=== PATIENT | male | born 1950 | race Caucasian/White ===

== ENCOUNTER 2019-08-27 08:59 | Inpatient (IN) ==
[2019-08-27] MEDS ORDERED: GLUCAGON 1 MG VIAL IM PRN ×2 (09:21)
[2019-08-27] MEDS ORDERED: DEXTROSE 50% 25 GM/50 ML VIAL IV PRN ×2 (09:21)
[2019-08-27 10:32] LABS: Basophils # 0.1 10*3/uL (0.0-0.2); Basophils % 0.8 % (0.0-0.8); Eosinophils # 0.1 10*3/uL (0.0-0.87); Eosinophils % 1.4 % (0.00-10.9); Hematocrit 50.4 VOL% (42.0-52.0); Hemoglobin 16.4 GM/DL (14.0-18.0); Immature Granulocytes % 0.3 %; Immature Granulocytes Absolute 0.03 #; Mean Corpuscular HGB Conc 32.5 GM/DL (32-36); Mean Corpuscular Volume 85.7 FL (87-102); Mean Platelet Volume 11.9 FL (9.6-12.0); Monocytes % 7.8 % (1.7-12.7); Neutrophils % 68.7 % (38.7-73.9); Platelet Count 221 T/CUMM (130-400); Red Blood Count 5.88 MC/CUMM (3.8-5.5); Red Cell Distribution Width 13.8 % (9.3-17.3); White Blood Count 9.6 T/CUMM (4-12)
[2019-08-27 10:54] LABS: Albumin 3.9 G/DL (3.4-5.0); Bilirubin,Total 0.5 MG/DL (0.2-1.0); Calcium 9.2 MG/DL (8.5-10.1); Osmolality,Calculated 273.8 MOS/KG (273-304); Total Protein 7.5 G/DL (6.4-8.3)
[2019-08-27 11:36] LABS: ABG Base Excess 3.1 MMOL/L (-2.5-2.5); ABG HCO3 27.1 MMOL/L (20-26); ABG Oxygen Saturation 96.9 % (95-100); ABG PCO2 40.2 MM HG (35-48); ABG PH 7.441 (7.35-7.45); ABG PO2 81.5 MM HG (80-95)
[2019-08-27] MEDS ORDERED: NITROGLYCERIN SL 0.4 MG TABLET SL PRN (12:11)
[2019-08-27] MEDS ORDERED: ACETAMINOPHEN 325 MG TABLET PO PRN (12:12)
[2019-08-27] MEDS: INSULIN LISPRO 100 UNIT/ML SUBCUT SCH ×3 (12:15→21:33)
[2019-08-27] MEDS: CHLORHEXIDINE 4% SOLN 118 ML BOTTLE TOP SCH ×2 (14:41→21:34)
[2019-08-27] MEDS: CHLORHEXIDINE 0.12% ORAL RINSE 60 ML BOTTLE SWISH/SPIT SCH (22:11)
[2019-08-27] MEDS: SODIUM CHLORIDE 0.9% 1,000 ML IV SCH (22:15)
[2019-08-28] MEDS ORDERED: PAPAVERINE 60 MG/2 ML VIAL ONE (05:15)
[2019-08-28] MEDS ORDERED: VANCOMYCIN 1,000 MG VIAL ONE (05:16)
[2019-08-28] MEDS ORDERED: VANCOMYCIN 500 MG VIAL ONE (05:16)
[2019-08-28] MEDS ORDERED: DIAZEPAM 5 MG TABLET PO ONE (06:00)
[2019-08-28] MEDS ORDERED: FAMOTIDINE 20 MG TABLET PO ONE (06:00)
[2019-08-28] MEDS ORDERED: SUFentanil 250 MCG/5 ML AMP ONE (06:07)
[2019-08-28] MEDS ORDERED: MIDAZOLAM 10 MG/2 ML VIAL ONE (06:07)
[2019-08-28] MEDS ORDERED: MINERAL OIL/PETROLATUM OPH OINT 3.5 GM TUBE ONE (06:08)
[2019-08-28] MEDS ORDERED: FAMOTIDINE 20 MG/2 ML VIAL IV ONE (06:24)
[2019-08-28] MEDS ORDERED: diphenhydrAMINE 50 MG/1 ML VIAL ONE (06:24)
[2019-08-28] MEDS ORDERED: VANCOMYCIN INJ 1,000 MG in SODIUM CHLORIDE 0.9% 250 ML IV ONE (07:00)
[2019-08-28] MEDS ORDERED: SODIUM BICARBONATE 50 MEQ/50 ML VIAL IV ONE ×2 (07:42→11:24)
[2019-08-28] MEDS ORDERED: PHENYLEPHRINE DRIP 40 MG/250 ML PREMIX IV ONE (07:42)
[2019-08-28] MEDS ORDERED: CALCIUM CHLORIDE 1,000 MG/10 ML SYRINGE IV ONE (07:42)
[2019-08-28] MEDS ORDERED: NITROPRUSSIDE 50 MG/2 ML VIAL ONE (07:42)
[2019-08-28] MEDS ORDERED: POTASSIUM CHLORIDE RIDER 100 ML IV ONE (07:43)
[2019-08-28 07:44] LABS: ABG Base Excess -0.2 MMOL/L (-2.5-2.5); ABG HCO3 24.3 MMOL/L (20-26); ABG Oxygen Saturation 99.9 % (95-100); ABG PCO2 40.7 MM HG (35-48); ABG PH 7.391 (7.35-7.45); ABG TCO2 21.2 MMOL/L (23-27); Glucose Heart Surgery 122 MG/DL (74-106); Hematocrit Heart Surgery 43.5 PERCENT (42-52); Hemoglobin Heart Surgery 14.2 G/DL (14.0-18.0); Ionized Calcium Arterial 1.14 MMOL/L (1.21-1.46); PCO2 Patient Temp Arterial 40.7 MMHG; PH Patient Temp Arterial 7.391; Patient Temperature 37 CELCIUS; Potassium Heart/CVR 3.8 MMOL/L (3.5-5.1); Sodium Heart/CVR 141 MMOL/L (135-145)
[2019-08-28] MEDS ORDERED: ALBUMIN 5% 12.5 GM/250 ML VIAL IV ONE ×2 (08:32→12:41)
[2019-08-28 09:59] LABS: Apearance,Urine CLEAR (Clear); Bilirubin,Urine Negative (Negative); Blood, Urine Small mg/dL (Negative); Glucose,Urine (UA) Negative (Negative); Ketones,Urine Negative (Negative); Mucus,Urine Occasional /LPF (Occasional); Nitrite,Urine Negative (Negative); Protein,Urine Negative; RBC,Urine 3 /HPF (0-4); Urine Color Yellow (Yellow); Urine Specific Gravity 1.016 (1.001-1.035); Urine Urobilinogen < 2.0 EU/DL (0.2-1.0); WBC,Urine 1 /HPF (0-6)
[2019-08-28 10:15] LABS: Hematocrit Heart Surgery 29.5 PERCENT (42-52); Hemoglobin Heart Surgery 9.5 G/DL (14.0-18.0); PCO2 Patient Temp Venous 33.6 MM HG; PH Patient Temp Venous 7.461; PO2 Patient Temp Venous 39.4 MM HG; Potassium Heart/CVR 4.7 MMOL/L (3.5-5.1); VBG Base Excess 0.6 MEQ/L (0-4); VBG HCO3 24.8 MEQ/L (24-28); VBG PCO2 38.9 MMHG (41-51); VBG PH 7.417; VBG PO2 48.4 MMHG (17-40)
[2019-08-28 10:54] LABS: Hematocrit Heart Surgery 34.2 PERCENT (42-52); Hemoglobin Heart Surgery 11.1 G/DL (14.0-18.0); PCO2 Patient Temp Venous 31.7 MM HG; PH Patient Temp Venous 7.485; PO2 Patient Temp Venous 35.2 MM HG; Potassium Heart/CVR 4.8 MMOL/L (3.5-5.1); VBG Oxygen Saturation 80.2 %; VBG PCO2 34.9 MMHG (41-51); VBG PH 7.455; VBG PO2 40.5 MMHG (17-40)
[2019-08-28] MEDS ORDERED: THROMBIN TOPICAL (RECOMBINANT) 5,000 UNIT VIAL TOP ONE ×2 (11:12→11:15)
[2019-08-28] MEDS ORDERED: DEXTROSE 5% KCL 20 MEQ 20 MEQ/1,000 ML BAG IV ONE (11:23)
[2019-08-28] MEDS ORDERED: MANNITOL 100 GM/500 ML BAG IV ONE (11:23)
[2019-08-28] MEDS ORDERED: LIDOCAINE 2% 5 ML VIAL ONE ×2 (11:23→17:17)
[2019-08-28] MEDS ORDERED: FUROSEMIDE 20 MG/2 ML VIAL ONE (11:24)
[2019-08-28] MEDS ORDERED: ALBUMIN 25% 25 GM/100 ML VIAL IV ONE ×3 (11:24→17:17)
[2019-08-28] MEDS ORDERED: PROTAMINE SULFATE 250 MG/25 ML VIAL IV ONE (11:24)
[2019-08-28] MEDS ORDERED: HEPARIN 10,000 UNIT/10 ML VIAL ONE ×2 (11:24→17:17)
[2019-08-28] MEDS ORDERED: methylPREDNISolone SOD SUC 1,000 MG/8 ML VIAL ONE (11:24)
[2019-08-28] MEDS ORDERED: PROTAMINE SULFATE 50 MG/5 ML VIAL IV ONE ×4 (11:24→15:28)
[2019-08-28] MEDS ORDERED: MAGNESIUM SULFATE 5 GM/10 ML VIAL IV ONE (11:24)
[2019-08-28 11:38] LABS: ABG Base Excess 0.4 MMOL/L (-2.5-2.5); ABG HCO3 24.8 MMOL/L (20-26); ABG PCO2 36.6 MM HG (35-48); ABG PH 7.431 (7.35-7.45); ABG TCO2 21.2 MMOL/L (23-27); Glucose Heart Surgery 245 MG/DL (74-106); Hematocrit Heart Surgery 39.7 PERCENT (42-52); Hemoglobin Heart Surgery 12.9 G/DL (14.0-18.0); Ionized Calcium Arterial 1.31 MMOL/L (1.21-1.46); PCO2 Patient Temp Arterial 36.6 MMHG; PH Patient Temp Arterial 7.431; Patient Temperature 37 CELCIUS; Potassium Heart/CVR 3.8 MMOL/L (3.5-5.1); Sodium Heart/CVR 137 MMOL/L (135-145)
[2019-08-28] MEDS: SODIUM CHLORIDE 0.45% 1,000 ML IV SCH ×2 (12:48)
[2019-08-28] MEDS: ALBUMIN 5% 12.5 GM in PREMIX 1 EACH IV PRN ×2 (13:00→14:00)
[2019-08-28] MEDS: LACTATED RINGERS 1,000 ML IV PRN ×2 (13:00→14:01)
[2019-08-28] MEDS: POTASSIUM CHLORIDE RIDER 20 MEQ in PREMIX 1 EACH IV PRN ×4 (13:00→21:59)
[2019-08-28] MEDS ORDERED: CHLORHEXIDINE 4% SOLN 118 ML BOTTLE TOP PRN (13:12)
[2019-08-28] MEDS ORDERED: DEXTROSE 10% 250 ML BAG IV PRN ×2 (13:12)
[2019-08-28] MEDS ORDERED: MORPHINE 10 MG/1 ML VIAL IV PRN (13:12)
[2019-08-28] MEDS ORDERED: MAGNESIUM SULF RIDER 2 GM in PREMIX 1 EACH IV PRN (13:12)
[2019-08-28] MEDS ORDERED: ONDANSETRON 4 MG/2 ML VIAL IV PRN (13:12)
[2019-08-28] MEDS ORDERED: MIDAZOLAM 10 MG/2 ML VIAL IV PRN (13:12)
[2019-08-28] MEDS ORDERED: MIDAZOLAM 2 MG/2 ML VIAL IV PRN (13:12)
[2019-08-28] MEDS ORDERED: CALCIUM CHLORIDE 1,000 MG/10 ML SYRINGE IV PRN (13:12)
[2019-08-28] MEDS ORDERED: INSULIN REGULAR 100 UNIT/ML IV ONE (13:12)
[2019-08-28] MEDS ORDERED: ACETAMINOPHEN 650 MG SUPP RECTAL PRN (13:12)
[2019-08-28] MEDS ORDERED: LACTATED RINGERS 250 ML IV PRN (13:12)
[2019-08-28] MEDS ORDERED: VECURONIUM 10 MG VIAL IV PRN ×2 (13:12)
[2019-08-28] MEDS ORDERED: INSULIN REGULAR 100 UNIT/ML IV PRN (13:12)
[2019-08-28] MEDS ORDERED: NITROPRUSSIDE 100 MG in DEXTROSE 5% 250 ML IV PRN (13:12)
[2019-08-28] MEDS ORDERED: MAGNESIUM SULF RIDER 4 GM in PREMIX 1 EACH IV PRN (13:12)
[2019-08-28 13:15] LABS: ABG Base Excess -1.6 MMOL/L (-2.5-2.5); ABG HCO3 23.1 MMOL/L (20-26); ABG Oxygen Saturation 99.9 % (95-100); ABG PCO2 33.4 MM HG (35-48); ABG PH 7.429 (7.35-7.45); Glucose Heart Surgery 223 MG/DL (74-106); Hematocrit Heart Surgery 31.9 PERCENT (42-52); Hemoglobin Heart Surgery 10.3 G/DL (14.0-18.0); Potassium Heart/CVR 3.4 MMOL/L (3.5-5.1)
[2019-08-28 13:22] LABS: Basophils # 0.1 10*3/uL (0.0-0.2); Basophils % 0.4 % (0.0-0.8); Eosinophils # 0.1 10*3/uL (0.0-0.87); Eosinophils % 0.6 % (0.00-10.9); Hematocrit 31.2 VOL% (42.0-52.0); Hemoglobin 10.1 GM/DL (14.0-18.0); Immature Granulocytes % 0.7 %; Immature Granulocytes Absolute 0.12 #; Lymphocytes % 5.8 % (21.2-54.2); Mean Corpuscular HGB Conc 32.4 GM/DL (32-36); Mean Corpuscular Volume 87.6 FL (87-102); Mean Platelet Volume 11.4 FL (9.6-12.0); Monocytes % 3.7 % (1.7-12.7); Neutrophils % 88.8 % (38.7-73.9); Platelet Count 177 T/CUMM (130-400); Red Blood Count 3.56 MC/CUMM (3.8-5.5); Red Cell Distribution Width 13.8 % (9.3-17.3); White Blood Count 17.1 T/CUMM (4-12)
[2019-08-28 13:30] LABS: INR 1.2; PT Patient Result 12.6 SECS (9.8-11.9); Partial Thromboplastin Time 31.3 SECS (23.9-33.8)
[2019-08-28] MEDS: POTASSIUM CHLORIDE RIDER 10 MEQ in PREMIX 1 EACH IV PRN ×2 (13:30→22:35)
[2019-08-28 13:31] LABS: Albumin 3.9 G/DL (3.4-5.0); Bilirubin,Total 1.4 MG/DL (0.2-1.0); Calcium 8.7 MG/DL (8.5-10.1); Total Protein 5.6 G/DL (6.4-8.3)
[2019-08-28 13:36] LABS: CKMB % 6.8 %
[2019-08-28 13:38] LABS: Troponin I 4.37 NG/ML (0.00-0.045)
[2019-08-28] MEDS: INSULIN REGULAR DRIP 100 ML IV SCH (14:46)
[2019-08-28 15:06] LABS: ABG Base Excess -0.3 MMOL/L (-2.5-2.5); ABG HCO3 24.2 MMOL/L (20-26); ABG Oxygen Saturation 99.7 % (95-100); ABG PCO2 30.8 MM HG (35-48); ABG PH 7.476 (7.35-7.45); Glucose Heart Surgery 182 MG/DL (74-106); Hematocrit Heart Surgery 26.9 PERCENT (42-52); Hemoglobin Heart Surgery 8.7 G/DL (14.0-18.0); Potassium Heart/CVR 3.5 MMOL/L (3.5-5.1)
[2019-08-28] MEDS ORDERED: SODIUM CHLORIDE 0.9% 1,000 ML IV PRN ×2 (15:26→15:34)
[2019-08-28] MEDS ORDERED: AMIODARONE 150 MG/3 ML VIAL ONE (17:17)
[2019-08-28] MEDS ORDERED: HEPARIN/NACL 0.9% 2 UNITS/ML 500 ML IV ONE (17:17)
[2019-08-28] MEDS ORDERED: PHENYLEPHRINE DRIP 20 MG/250 ML PREMIX IV ONE (17:17)
[2019-08-28] MEDS ORDERED: SEVOFLURANE 1 UNIT/15 MINUTE INH ONE (17:17)
[2019-08-28] MEDS ORDERED: VECURONIUM 10 MG VIAL IV ONE (17:17)
[2019-08-28] MEDS ORDERED: CALCIUM CHLORIDE 1,000 MG/10 ML VIAL IV ONE (17:17)
[2019-08-28] MEDS ORDERED: ETOMIDATE 40 MG/20 ML VIAL IV ONE (17:18)
[2019-08-28] MEDS ORDERED: AMINOCAPROIC ACID 5,000 MG/20 ML VIAL ONE (17:18)
[2019-08-28] MEDS ORDERED: SODIUM CHLORIDE 0.9% 100 ML IV ONE (17:18)
[2019-08-28] MEDS ORDERED: SODIUM CHLORIDE 0.9% 250 ML IV ONE (17:18)
[2019-08-28] MEDS ORDERED: PHENYLEPHRINE 10 MG/1 ML VIAL IV ONE (17:18)
[2019-08-28] MEDS ORDERED: LACTATED RINGERS 2,000 ML IV ONE (17:18)
[2019-08-28] MEDS ORDERED: SODIUM CHLORIDE 0.9% 2,000 ML IV ONE (17:18)
[2019-08-28] MEDS ORDERED: ePHEDrine 50 MG/ML AMP ONE (17:23)
[2019-08-28 18:07] LABS: ABG HCO3 25.3 MMOL/L (20-26); ABG Oxygen Saturation 99.6 % (95-100); ABG PH 7.446 (7.35-7.45); ABG TCO2 22.7 MMOL/L (23-27); Glucose Heart Surgery 154 MG/DL (74-106); Hematocrit Heart Surgery 29.3 PERCENT (42-52); Hemoglobin Heart Surgery 9.5 G/DL (14.0-18.0); Potassium Heart/CVR 3.3 MMOL/L (3.5-5.1)
[2019-08-28] MEDS: PHENYLEPHRINE DRIP 40 MG/250 ML PREMIX IV PRN (19:00)
[2019-08-28] MEDS: CHLORHEXIDINE 4% SOLN 118 ML BOTTLE TOP SCH (19:26)
[2019-08-28] MEDS: CHLORHEXIDINE 0.12% ORAL RINSE 60 ML BOTTLE SWISH/SPIT SCH ×2 (19:26→22:02)
[2019-08-28] MEDS: SODIUM CHLORIDE 0.9% 1,000 ML IV SCH (19:26)
[2019-08-28] MEDS: INSULIN LISPRO 100 UNIT/ML SUBCUT SCH ×2 (19:26→20:05)
[2019-08-28] MEDS: MORPHINE 4 MG/1 ML VIAL IV PRN (21:15)
[2019-08-28 21:54] LABS: ABG Base Excess 0.4 MMOL/L (-2.5-2.5); ABG HCO3 24.8 MMOL/L (20-26); ABG Oxygen Saturation 99.7 % (95-100); ABG PCO2 35.3 MM HG (35-48); ABG PH 7.443 (7.35-7.45); ABG TCO2 21.7 MMOL/L (23-27); Glucose Heart Surgery 163 MG/DL (74-106); Hematocrit Heart Surgery 33.1 PERCENT (42-52); Hemoglobin Heart Surgery 10.7 G/DL (14.0-18.0); Potassium Heart/CVR 3.8 MMOL/L (3.5-5.1)
[2019-08-29] MEDS: MORPHINE 4 MG/1 ML VIAL IV PRN ×2 (00:07→20:55)
[2019-08-29] MEDS: VANCOMYCIN INJ 1,250 MG in SODIUM CHLORIDE 0.9% 250 ML IV SCH ×2 (00:11→12:15)
[2019-08-29] MEDS: ALBUMIN 5% 12.5 GM in PREMIX 1 EACH IV PRN ×2 (00:54→02:22)
[2019-08-29] MEDS ORDERED: AMIODARONE 150 MG/3 ML VIAL ONE (01:48)
[2019-08-29] MEDS ORDERED: AMIODARONE INJ 150 MG in DEXTROSE 5% 100 ML IV ONE (02:00)
[2019-08-29] MEDS ORDERED: AMIODARONE INJ 450 MG in DEXTROSE 5% 241 ML IV SCH (02:00)
[2019-08-29] MEDS: PHENYLEPHRINE DRIP 40 MG/250 ML PREMIX IV PRN ×2 (02:02→08:45)
[2019-08-29 02:14] LABS: ABG Base Excess 0.3 MMOL/L (-2.5-2.5); ABG HCO3 24.7 MMOL/L (20-26); ABG Oxygen Saturation 99.2 % (95-100); ABG PCO2 43.5 MM HG (35-48); ABG PH 7.378 (7.35-7.45); ABG TCO2 23.3 MMOL/L (23-27); Glucose Heart Surgery 178 MG/DL (74-106); Hematocrit Heart Surgery 31.4 PERCENT (42-52); Hemoglobin Heart Surgery 10.1 G/DL (14.0-18.0); Potassium Heart/CVR 3.8 MMOL/L (3.5-5.1)
[2019-08-29] MEDS: POTASSIUM CHLORIDE RIDER 20 MEQ in PREMIX 1 EACH IV PRN (02:37)
[2019-08-29] MEDS: POTASSIUM CHLORIDE RIDER 10 MEQ in PREMIX 1 EACH IV PRN (03:07)
[2019-08-29 04:01] LABS: ABG HCO3 23.5 MMOL/L (20-26); ABG Oxygen Saturation 98.4 % (95-100); ABG PCO2 43.4 MM HG (35-48); ABG PH 7.359 (7.35-7.45); ABG TCO2 22.4 MMOL/L (23-27); Glucose Heart Surgery 169 MG/DL (74-106); Hematocrit Heart Surgery 30.7 PERCENT (42-52); Hemoglobin Heart Surgery 9.9 G/DL (14.0-18.0); Potassium Heart/CVR 4.4 MMOL/L (3.5-5.1)
[2019-08-29 04:31] LABS: Basophils % 0.1 % (0.0-0.8); Hematocrit 28.4 VOL% (42.0-52.0); Hemoglobin 9.6 GM/DL (14.0-18.0); Immature Granulocytes % 0.4 %; Immature Granulocytes Absolute 0.07 #; Lymphocytes # 0.8 10*3/uL (1.4-4.0); Lymphocytes % 4.8 % (21.2-54.2); Mean Corpuscular HGB Conc 33.8 GM/DL (32-36); Mean Corpuscular Volume 85.5 FL (87-102); Mean Platelet Volume 12.1 FL (9.6-12.0); Monocytes % 6.3 % (1.7-12.7); Neutrophils % 88.4 % (38.7-73.9); Platelet Count 149 T/CUMM (130-400); Red Blood Count 3.32 MC/CUMM (3.8-5.5); Red Cell Distribution Width 14.3 % (9.3-17.3); White Blood Count 15.7 T/CUMM (4-12)
[2019-08-29 04:52] LABS: CKMB % 5.2 %
[2019-08-29 04:59] LABS: Band Neutrophils 14 % (0-10); Lymphocytes 4 % (20-55); Segmented Neutrophils 77 % (50-85); Total Cells Counted 100
[2019-08-29 05:00] LABS: Anisocytosis 1+; Platelet Estimate Normal
[2019-08-29 05:08] LABS: Albumin 3.9 G/DL (3.4-5.0); Bilirubin,Direct 0.41 MG/DL (0.0-0.20); Calcium 8.3 MG/DL (8.5-10.1); Osmolality,Calculated 280.4 MOS/KG (273-304); Total Protein 6.1 G/DL (6.4-8.3)
[2019-08-29] MEDS: CHLORHEXIDINE 0.12% ORAL RINSE 60 ML BOTTLE SWISH/SPIT SCH ×2 (08:45→20:32)
[2019-08-29] MEDS: INSULIN REGULAR 100 UNIT/ML SUBCUT SCH ×4 (08:45→20:33)
[2019-08-29] MEDS: AMIODARONE INJ 450 MG in DEXTROSE 5% 241 ML IV SCH (09:14)
[2019-08-29] MEDS ORDERED: oxyCODONE/ACETAMINOPHEN 5-325 MG TABLET PO PRN (10:31)
[2019-08-29 13:35] LABS: CKMB % 3.8 %
[2019-08-29 13:42] LABS: Troponin I 9.37 NG/ML (0.00-0.045)
[2019-08-29] MEDS: SODIUM CHLORIDE 0.45% 1,000 ML IV SCH ×2 (14:39→14:40)
[2019-08-29] MEDS: INSULIN REGULAR DRIP 100 ML IV SCH (14:40)
[2019-08-30] MEDS: AMIODARONE INJ 450 MG in DEXTROSE 5% 241 ML IV SCH ×2 (00:14→14:03)
[2019-08-30] MEDS: INSULIN REGULAR 100 UNIT/ML SUBCUT SCH ×6 (00:16→20:06)
[2019-08-30] MEDS: VANCOMYCIN INJ 1,250 MG in SODIUM CHLORIDE 0.9% 250 ML IV SCH ×2 (00:18→11:37)
[2019-08-30] MEDS: MORPHINE 4 MG/1 ML VIAL IV PRN ×2 (03:40→19:20)
[2019-08-30 04:35] LABS: Basophils % 0.2 % (0.0-0.8); Hematocrit 29.2 VOL% (42.0-52.0); Hemoglobin 9.7 GM/DL (14.0-18.0); Immature Granulocytes % 0.6 %; Immature Granulocytes Absolute 0.11 #; Lymphocytes # 1.7 10*3/uL (1.4-4.0); Lymphocytes % 8.8 % (21.2-54.2); Mean Corpuscular HGB Conc 33.2 GM/DL (32-36); Mean Corpuscular Volume 86.6 FL (87-102); Mean Platelet Volume 13.3 FL (9.6-12.0); Monocytes % 8.4 % (1.7-12.7); Platelet Count 91 T/CUMM (130-400); Red Blood Count 3.37 MC/CUMM (3.8-5.5); Red Cell Distribution Width 14.6 % (9.3-17.3)
[2019-08-30 04:57] LABS: Albumin 3.3 G/DL (3.4-5.0); Bilirubin,Direct 0.21 MG/DL (0.0-0.20); Bilirubin,Total 1.2 MG/DL (0.2-1.0); Calcium 8.4 MG/DL (8.5-10.1); Osmolality,Calculated 277.7 MOS/KG (273-304); Total Protein 5.8 G/DL (6.4-8.3)
[2019-08-30 05:51] LABS: Platelet Estimate Decreased; Polychromasia Few
[2019-08-30] MEDS: ASPIRIN EC 81 MG TABLET PO SCH (08:56)
[2019-08-30] MEDS: CHLORHEXIDINE 0.12% ORAL RINSE 60 ML BOTTLE SWISH/SPIT SCH ×2 (08:56→20:06)
[2019-08-30] MEDS: AMIODARONE 200 MG TABLET PO SCH ×2 (08:56→20:06)
[2019-08-30] MEDS: INSULIN REGULAR DRIP 100 ML IV SCH (14:02)
[2019-08-30] MEDS: SODIUM CHLORIDE 0.45% 1,000 ML IV SCH ×2 (15:05)
[2019-08-30] MEDS: PHENYLEPHRINE DRIP 40 MG/250 ML PREMIX IV PRN (19:19)
[2019-08-30] MEDS: ATORVASTATIN 20 MG TABLET PO SCH (20:06)
[2019-08-30] MEDS ORDERED: ACETAMINOPHEN 325 MG TABLET ONE (20:20)
[2019-08-30] MEDS: ACETAMINOPHEN 325 MG TABLET PO PRN (20:36)
[2019-08-30] MEDS: ALBUMIN 5% 12.5 GM in PREMIX 1 EACH IV PRN (22:08)
[2019-08-30 22:12] LABS: Hemoglobin 10.5 GM/DL (14.0-18.0)
[2019-08-30] MEDS: LACTATED RINGERS 1,000 ML IV PRN (22:34)
[2019-08-31 03:47] LABS: Albumin 3.3 G/DL (3.4-5.0); Bilirubin,Direct 0.36 MG/DL (0.0-0.20); Bilirubin,Total 1.2 MG/DL (0.2-1.0); Calcium 8.9 MG/DL (8.5-10.1); Osmolality,Calculated 274.8 MOS/KG (273-304); Total Protein 6.3 G/DL (6.4-8.3)
[2019-08-31] MEDS: INSULIN REGULAR 100 UNIT/ML SUBCUT SCH ×7 (03:55→23:44)
[2019-08-31] MEDS: POTASSIUM CHLORIDE RIDER 20 MEQ in PREMIX 1 EACH IV PRN (04:16)
[2019-08-31] MEDS: ACETAMINOPHEN 325 MG TABLET PO PRN ×3 (04:16→23:44)
[2019-08-31 04:49] LABS: Basophils % 0.2 % (0.0-0.8); Hematocrit 33.3 VOL% (42.0-52.0); Hemoglobin 10.8 GM/DL (14.0-18.0); Immature Granulocytes % 0.7 %; Immature Granulocytes Absolute 0.09 #; Lymphocytes # 0.9 10*3/uL (1.4-4.0); Lymphocytes % 6.8 % (21.2-54.2); Mean Corpuscular HGB Conc 32.4 GM/DL (32-36); Mean Corpuscular Volume 89.3 FL (87-102); Mean Platelet Volume 13.5 FL (9.6-12.0); Monocytes % 6.1 % (1.7-12.7); Neutrophils % 86.2 % (38.7-73.9); Red Blood Count 3.73 MC/CUMM (3.8-5.5); Red Cell Distribution Width 14.3 % (9.3-17.3)
[2019-08-31 04:54] LABS: Platelet Count 65 T/CUMM (130-400)
[2019-08-31] MEDS: POTASSIUM CHLORIDE RIDER 10 MEQ in PREMIX 1 EACH IV PRN (05:20)
[2019-08-31 05:29] LABS: Hypochromasia 1+; Platelet Estimate Decreased
[2019-08-31] MEDS: AMIODARONE INJ 450 MG in DEXTROSE 5% 241 ML IV SCH ×3 (06:11→21:43)
[2019-08-31] MEDS: MORPHINE 4 MG/1 ML VIAL IV PRN (06:20)
[2019-08-31] MEDS ORDERED: AMIODARONE INJ 50 MG in DEXTROSE 5% 100 ML IV ONE (06:24)
[2019-08-31] MEDS ORDERED: AMIODARONE 150 MG/3 ML VIAL ONE (06:26)
[2019-08-31] MEDS ORDERED: LEVOFLOXACIN INJ 500 MG in PREMIX 1 EACH IV ONE (09:00)
[2019-08-31] MEDS: ALBUMIN 5% 12.5 GM in PREMIX 1 EACH IV PRN ×2 (09:11→09:29)
[2019-08-31] MEDS: AMIODARONE 200 MG TABLET PO SCH ×2 (09:12→20:40)
[2019-08-31] MEDS: CHLORHEXIDINE 0.12% ORAL RINSE 60 ML BOTTLE SWISH/SPIT SCH ×2 (09:12→20:40)
[2019-08-31] MEDS: ASPIRIN EC 81 MG TABLET PO SCH (09:12)
[2019-08-31] MEDS: INSULIN GLARGINE 100 UNIT/ML SUBCUT SCH (09:13)
[2019-08-31 09:14] LABS: Basophils % 0.2 % (0.0-0.8); Hematocrit 32.4 VOL% (42.0-52.0); Hemoglobin 10.7 GM/DL (14.0-18.0); Immature Granulocytes % 0.8 %; Lymphocytes # 0.4 10*3/uL (1.4-4.0); Lymphocytes % 3.3 % (21.2-54.2); Mean Corpuscular Volume 87.6 FL (87-102); Mean Platelet Volume 12.6 FL (9.6-12.0); NRBC # 0.02 10*3/uL; Neutrophils % 90.7 % (38.7-73.9); Platelet Count 66 T/CUMM (130-400); White Blood Count 12.5 T/CUMM (4-12)
[2019-08-31 09:31] LABS: Band Neutrophils 3 % (0-10); Hypochromasia 1+; Lymphocytes 2 % (20-55); Platelet Estimate Decreased; Segmented Neutrophils 88 % (50-85); Total Cells Counted 100
[2019-08-31 09:42] LABS: Calcium 8.4 MG/DL (8.5-10.1)
[2019-08-31] MEDS ORDERED: AZITHROMYCIN INJ 500 MG in SODIUM CHLORIDE 0.9% 250 ML IV SCH (10:00)
[2019-08-31] MEDS: cefTRIAXone 1,000 MG in SYRINGE 1 EACH IV SCH (10:48)
[2019-08-31] MEDS ORDERED: AZITHROMYCIN 250 MG TABLET PO ONE (12:00)
[2019-08-31] MEDS: PHENYLEPHRINE DRIP 40 MG/250 ML PREMIX IV PRN ×2 (13:01→23:43)
[2019-08-31] MEDS: INSULIN REGULAR DRIP 100 ML IV SCH (14:52)
[2019-08-31] MEDS: SODIUM CHLORIDE 0.45% 1,000 ML IV SCH ×2 (15:43)
[2019-08-31] MEDS: ATORVASTATIN 20 MG TABLET PO SCH (20:40)
[2019-09-01 05:18] LABS: Bilirubin,Total 1.3 MG/DL (0.2-1.0); Calcium 8.1 MG/DL (8.5-10.1); Osmolality,Calculated 272.8 MOS/KG (273-304); Total Protein 5.2 G/DL (6.4-8.3)
[2019-09-01 05:41] LABS: Basophils % 0.2 % (0.0-0.8); Eosinophils % 0.1 % (0.00-10.9); Hematocrit 30.7 VOL% (42.0-52.0); Hemoglobin 10.2 GM/DL (14.0-18.0); Immature Granulocytes % 0.9 %; Immature Granulocytes Absolute 0.08 #; Lymphocytes # 0.8 10*3/uL (1.4-4.0); Lymphocytes % 8.7 % (21.2-54.2); Mean Corpuscular HGB Conc 33.2 GM/DL (32-36); Monocytes % 9.6 % (1.7-12.7); Neutrophils % 80.5 % (38.7-73.9); Red Blood Count 3.53 MC/CUMM (3.8-5.5); White Blood Count 9.3 T/CUMM (4-12)
[2019-09-01 05:42] LABS: Platelet Count 2 T/CUMM (130-400)
[2019-09-01 05:47] LABS: Platelet Estimate Decreased; Polychromasia Few
[2019-09-01 05:55] LABS: Hypochromasia 1+
[2019-09-01] MEDS: INSULIN REGULAR 100 UNIT/ML SUBCUT SCH ×4 (06:05→21:40)
[2019-09-01] MEDS: SODIUM CHLORIDE 0.45% 1,000 ML IV SCH ×3 (07:00→14:17)
[2019-09-01] MEDS: POTASSIUM CHLORIDE RIDER 20 MEQ in PREMIX 1 EACH IV PRN (07:10)
[2019-09-01] MEDS: AZITHROMYCIN 250 MG TABLET PO SCH (08:56)
[2019-09-01] MEDS: CHLORHEXIDINE 0.12% ORAL RINSE 60 ML BOTTLE SWISH/SPIT SCH ×2 (08:56→21:30)
[2019-09-01] MEDS: INSULIN GLARGINE 100 UNIT/ML SUBCUT SCH (08:56)
[2019-09-01] MEDS: DOCUSATE SODIUM 100 MG CAPSULE PO SCH (08:56)
[2019-09-01] MEDS: AMIODARONE 200 MG TABLET PO SCH ×2 (08:56→21:30)
[2019-09-01] MEDS: POLYETHYLENE GLYCOL POWDER 17 GM PACK PO SCH (08:56)
[2019-09-01] MEDS: ASPIRIN EC 81 MG TABLET PO SCH (08:56)
[2019-09-01] MEDS ORDERED: SODIUM CHLORIDE 0.9% 1,000 ML IV PRN (09:29)
[2019-09-01] MEDS: cefTRIAXone 1,000 MG in SYRINGE 1 EACH IV SCH (09:37)
[2019-09-01] MEDS: POTASSIUM CHLORIDE RIDER 10 MEQ in PREMIX 1 EACH IV PRN (10:35)
[2019-09-01 10:41] LABS: INR 1.1; PT Patient Result 12.2 SECS (9.8-11.9); Partial Thromboplastin Time 30.1 SECS (23.9-33.8)
[2019-09-01] MEDS: ACETAMINOPHEN 325 MG TABLET PO PRN ×2 (11:50→17:01)
[2019-09-01] MEDS: INSULIN REGULAR DRIP 100 ML IV SCH (14:17)
[2019-09-01] MEDS ORDERED: methylPREDNISolone SOD SUC 125 MG/2 ML VIAL IV ONE (16:23)
[2019-09-01] MEDS: ATORVASTATIN 20 MG TABLET PO SCH (21:30)
[2019-09-01] MEDS: MORPHINE 4 MG/1 ML VIAL IV PRN (21:42)
[2019-09-02 04:48] LABS: Basophils % 0.1 % (0.0-0.8); Hematocrit 30.9 VOL% (42.0-52.0); Hemoglobin 10.3 GM/DL (14.0-18.0); Immature Granulocytes % 1.3 %; Immature Granulocytes Absolute 0.15 #; Lymphocytes # 0.5 10*3/uL (1.4-4.0); Lymphocytes % 3.8 % (21.2-54.2); Mean Corpuscular HGB Conc 33.3 GM/DL (32-36); Mean Corpuscular Volume 87.3 FL (87-102); Mean Platelet Volume 8.7 FL (9.6-12.0); Neutrophils % 91.8 % (38.7-73.9); Red Blood Count 3.54 MC/CUMM (3.8-5.5); Red Cell Distribution Width 13.5 % (9.3-17.3)
[2019-09-02 04:51] LABS: Platelet Count 4 T/CUMM (130-400)
[2019-09-02 05:05] LABS: Albumin 2.8 G/DL (3.4-5.0); Bilirubin,Total 1.3 MG/DL (0.2-1.0); Calcium 8.3 MG/DL (8.5-10.1); Osmolality,Calculated 279.7 MOS/KG (273-304); Total Protein 5.8 G/DL (6.4-8.3)
[2019-09-02 05:12] LABS: Platelet Estimate Decreased; Segmented Neutrophils 100 % (50-85); Total Cells Counted 100
[2019-09-02 05:13] LABS: Hypochromasia Slight; Polychromasia Few
[2019-09-02] MEDS: INSULIN REGULAR 100 UNIT/ML SUBCUT SCH ×4 (05:53→22:55)
[2019-09-02] MEDS: POTASSIUM CHLORIDE RIDER 20 MEQ in PREMIX 1 EACH IV PRN (06:10)
[2019-09-02] MEDS: POTASSIUM CHLORIDE RIDER 10 MEQ in PREMIX 1 EACH IV PRN (06:57)
[2019-09-02] MEDS: AZITHROMYCIN 250 MG TABLET PO SCH (08:48)
[2019-09-02] MEDS: DOCUSATE SODIUM 100 MG CAPSULE PO SCH (08:48)
[2019-09-02] MEDS: INSULIN GLARGINE 100 UNIT/ML SUBCUT SCH (08:48)
[2019-09-02] MEDS: AMIODARONE 200 MG TABLET PO SCH ×2 (08:48→21:15)
[2019-09-02] MEDS: CHLORHEXIDINE 0.12% ORAL RINSE 60 ML BOTTLE SWISH/SPIT SCH ×2 (08:48→20:30)
[2019-09-02] MEDS: POLYETHYLENE GLYCOL POWDER 17 GM PACK PO SCH (08:48)
[2019-09-02] MEDS ORDERED: SODIUM CHLORIDE 0.9% 1,000 ML IV PRN ×2 (09:39→12:35)
[2019-09-02] MEDS: cefTRIAXone 1,000 MG in SYRINGE 1 EACH IV SCH (10:27)
[2019-09-02] MEDS ORDERED: IMMUNE GLOBULIN 10% 40 GM in PREMIX 1 EACH IV ONE (11:00)
[2019-09-02] MEDS: methylPREDNISolone SOD SUC INJ 1,000 MG in SODIUM CHLORIDE 0.9% 100 ML IV SCH (11:35)
[2019-09-02] MEDS: SODIUM CHLORIDE 0.45% 1,000 ML IV SCH ×2 (12:48→13:06)
[2019-09-02] MEDS: INSULIN REGULAR DRIP 100 ML IV SCH (13:06)
[2019-09-02] MEDS ORDERED: AMIODARONE INJ 50 MG in DEXTROSE 5% 100 ML IV ONE (20:11)
[2019-09-02] MEDS ORDERED: AMIODARONE 450 MG/9 ML VIAL IV ONE (20:12)
[2019-09-02] MEDS ORDERED: AMIODARONE 150 MG/3 ML VIAL ONE (20:12)
[2019-09-02] MEDS: AMIODARONE INJ 450 MG in DEXTROSE 5% 241 ML IV SCH (20:30)
[2019-09-02] MEDS: ATORVASTATIN 20 MG TABLET PO SCH (20:30)
[2019-09-02] MEDS: MORPHINE 4 MG/1 ML VIAL IV PRN (20:45)
[2019-09-02] MEDS ORDERED: DILTIAZEM 25 MG/5 ML VIAL IV ONE (21:14)
[2019-09-02] MEDS: dilTIAZem Drip 125 MG/125 ML PREMIX IV SCH (21:35)
[2019-09-03 03:27] LABS: Basophils % 0.1 % (0.0-0.8); Hematocrit 27.6 VOL% (42.0-52.0); Hemoglobin 9.1 GM/DL (14.0-18.0); Immature Granulocytes % 3.2 %; Immature Granulocytes Absolute 0.56 #; Lymphocytes # 1.1 10*3/uL (1.4-4.0); Lymphocytes % 6.4 % (21.2-54.2); Mean Corpuscular Volume 86.5 FL (87-102); Monocytes % 3.7 % (1.7-12.7); NRBC # 0.05 10*3/uL; Neutrophils % 86.6 % (38.7-73.9); Red Blood Count 3.19 MC/CUMM (3.8-5.5); Red Cell Distribution Width 13.5 % (9.3-17.3); White Blood Count 17.2 T/CUMM (4-12)
[2019-09-03 03:31] LABS: Platelet Count 46 T/CUMM (130-400)
[2019-09-03 03:36] LABS: Albumin 2.5 G/DL (3.4-5.0); Bilirubin,Total 0.8 MG/DL (0.2-1.0); Calcium 8.2 MG/DL (8.5-10.1); Osmolality,Calculated 279.2 MOS/KG (273-304); Total Protein 6.6 G/DL (6.4-8.3)
[2019-09-03 04:00] LABS: Band Neutrophils 3 % (0-10); Lymphocytes 8 % (20-55); Segmented Neutrophils 86 % (50-85)
[2019-09-03 04:01] LABS: Hypochromasia 1+; Platelet Estimate Decreased; Total Cells Counted 100
[2019-09-03 04:02] LABS: Polychromasia Few
[2019-09-03] MEDS: POTASSIUM CHLORIDE RIDER 20 MEQ in PREMIX 1 EACH IV PRN (05:00)
[2019-09-03] MEDS: POTASSIUM CHLORIDE RIDER 10 MEQ in PREMIX 1 EACH IV PRN (05:55)
[2019-09-03] MEDS: INSULIN REGULAR 100 UNIT/ML SUBCUT SCH ×3 (06:04→17:14)
[2019-09-03] MEDS: methylPREDNISolone SOD SUC INJ 1,000 MG in SODIUM CHLORIDE 0.9% 100 ML IV SCH (09:37)
[2019-09-03] MEDS: cefTRIAXone 1,000 MG in SYRINGE 1 EACH IV SCH (09:39)
[2019-09-03] MEDS: INSULIN GLARGINE 100 UNIT/ML SUBCUT SCH (09:39)
[2019-09-03] MEDS: AZITHROMYCIN 250 MG TABLET PO SCH (09:39)
[2019-09-03] MEDS: CHLORHEXIDINE 0.12% ORAL RINSE 60 ML BOTTLE SWISH/SPIT SCH ×2 (09:39→20:34)
[2019-09-03] MEDS: DOCUSATE SODIUM 100 MG CAPSULE PO SCH (09:39)
[2019-09-03] MEDS: POLYETHYLENE GLYCOL POWDER 17 GM PACK PO SCH (09:39)
[2019-09-03] MEDS: LEVOFLOXACIN INJ 500 MG in PREMIX 1 EACH IV SCH (10:44)
[2019-09-03] MEDS ORDERED: AMIODARONE 200 MG TABLET PO ONE (12:22)
[2019-09-03] MEDS: AMIODARONE INJ 450 MG in DEXTROSE 5% 241 ML IV SCH (13:26)
[2019-09-03] MEDS: AMIODARONE 200 MG TABLET PO SCH (20:34)
[2019-09-03] MEDS: ATORVASTATIN 20 MG TABLET PO SCH (20:34)
[2019-09-03] MEDS: ZALEPLON 5 MG CAPSULE PO SCH (20:34)
[2019-09-04] MEDS: INSULIN REGULAR 100 UNIT/ML SUBCUT SCH ×5 (00:21→21:46)
[2019-09-04] MEDS: MORPHINE 4 MG/1 ML VIAL IV PRN (00:21)
[2019-09-04] MEDS: dilTIAZem Drip 125 MG/125 ML PREMIX IV SCH ×4 (00:23→21:40)
[2019-09-04] MEDS: SODIUM CHLORIDE 0.45% 1,000 ML IV SCH ×2 (01:48→13:04)
[2019-09-04 04:32] LABS: Basophils % 0.2 % (0.0-0.8); Hematocrit 28.8 VOL% (42.0-52.0); Hemoglobin 9.4 GM/DL (14.0-18.0); Immature Granulocytes % 3.7 %; Immature Granulocytes Absolute 0.66 #; Lymphocytes % 5.8 % (21.2-54.2); Mean Corpuscular HGB Conc 32.6 GM/DL (32-36); Mean Corpuscular Volume 87.8 FL (87-102); Mean Platelet Volume 12.8 FL (9.6-12.0); NRBC # 0.07 10*3/uL; Neutrophils % 85.3 % (38.7-73.9); Platelet Count 85 T/CUMM (130-400); Red Blood Count 3.28 MC/CUMM (3.8-5.5); Red Cell Distribution Width 13.7 % (9.3-17.3); White Blood Count 17.8 T/CUMM (4-12)
[2019-09-04 05:09] LABS: Calcium 8.4 MG/DL (8.5-10.1)
[2019-09-04] MEDS: AMIODARONE INJ 450 MG in DEXTROSE 5% 241 ML IV SCH ×3 (05:28→21:45)
[2019-09-04 05:30] LABS: Lymphocytes 12 % (20-55); Platelet Estimate Decreased; Polychromasia Few; Segmented Neutrophils 83 % (50-85); Total Cells Counted 100
[2019-09-04] MEDS: POTASSIUM CHLORIDE RIDER 20 MEQ in PREMIX 1 EACH IV PRN (06:04)
[2019-09-04] MEDS: POTASSIUM CHLORIDE RIDER 10 MEQ in PREMIX 1 EACH IV PRN (07:07)
[2019-09-04] MEDS ORDERED: AMIODARONE 200 MG TABLET PO SCH (09:00)
[2019-09-04] MEDS ORDERED: AZITHROMYCIN 250 MG TABLET PO SCH (09:00)
[2019-09-04] MEDS: INSULIN GLARGINE 100 UNIT/ML SUBCUT SCH (11:16)
[2019-09-04] MEDS: DOCUSATE SODIUM 100 MG CAPSULE PO SCH (11:16)
[2019-09-04] MEDS: CHLORHEXIDINE 0.12% ORAL RINSE 60 ML BOTTLE SWISH/SPIT SCH ×2 (11:16→21:45)
[2019-09-04] MEDS: POLYETHYLENE GLYCOL POWDER 17 GM PACK PO SCH (11:16)
[2019-09-04] MEDS: AZITHROMYCIN 250 MG TABLET PO SCH (11:17)
[2019-09-04] MEDS: LEVOFLOXACIN INJ 500 MG in PREMIX 1 EACH IV SCH (11:17)
[2019-09-04] MEDS: AMIODARONE 200 MG TABLET PO SCH (11:22)
[2019-09-04] MEDS: methylPREDNISolone SOD SUC INJ 1,000 MG in SODIUM CHLORIDE 0.9% 100 ML IV SCH (11:37)
[2019-09-04 15:48] LABS: HIT Interpretation Negative (Negative)
[2019-09-04] MEDS ORDERED: AMIODARONE INJ 100 MG in DEXTROSE 5% 100 ML IV ONE (20:38)
[2019-09-04] MEDS: ATORVASTATIN 20 MG TABLET PO SCH (21:44)
[2019-09-04] MEDS: ZALEPLON 5 MG CAPSULE PO SCH (21:45)
[2019-09-05] MEDS: SODIUM CHLORIDE 0.45% 1,000 ML IV SCH ×2 (03:00→19:17)
[2019-09-05] MEDS: INSULIN REGULAR 100 UNIT/ML SUBCUT SCH ×4 (05:03→21:44)
[2019-09-05] MEDS: MORPHINE 4 MG/1 ML VIAL IV PRN ×2 (05:04→21:44)
[2019-09-05 05:26] LABS: Basophils % 0.2 % (0.0-0.8); Hematocrit 29.8 VOL% (42.0-52.0); Hemoglobin 9.6 GM/DL (14.0-18.0); Immature Granulocytes % 3.5 %; Immature Granulocytes Absolute 0.69 #; Lymphocytes # 1.4 10*3/uL (1.4-4.0); Lymphocytes % 6.9 % (21.2-54.2); Mean Corpuscular HGB Conc 32.2 GM/DL (32-36); Mean Corpuscular Volume 88.7 FL (87-102); Mean Platelet Volume 11.5 FL (9.6-12.0); Monocytes % 2.6 % (1.7-12.7); NRBC # 0.14 10*3/uL; Neutrophils % 86.8 % (38.7-73.9); Platelet Count 139 T/CUMM (130-400); Red Blood Count 3.36 MC/CUMM (3.8-5.5); Red Cell Distribution Width 14.1 % (9.3-17.3); White Blood Count 19.5 T/CUMM (4-12)
[2019-09-05 05:43] LABS: Calcium 8.4 MG/DL (8.5-10.1)
[2019-09-05 06:02] LABS: Band Neutrophils 4 % (0-10); Hypochromasia 1+; Lymphocytes 7 % (20-55); Microcytosis Slight; Nucleated Red Blood Cells 1 (0-5); Platelet Estimate Adequate; Polychromasia Slight; Segmented Neutrophils 83 % (50-85); Total Cells Counted 100
[2019-09-05] MEDS: POTASSIUM CHLORIDE RIDER 20 MEQ in PREMIX 1 EACH IV PRN (06:02)
[2019-09-05] MEDS: AMIODARONE INJ 450 MG in DEXTROSE 5% 241 ML IV SCH ×3 (06:20→22:08)
[2019-09-05] MEDS: POTASSIUM CHLORIDE RIDER 10 MEQ in PREMIX 1 EACH IV PRN (06:28)
[2019-09-05] MEDS: DOCUSATE SODIUM 100 MG CAPSULE PO SCH (09:29)
[2019-09-05] MEDS: INSULIN GLARGINE 100 UNIT/ML SUBCUT SCH (09:29)
[2019-09-05] MEDS: METOPROLOL TARTRATE 25 MG TABLET PO SCH (09:34)
[2019-09-05] MEDS: POLYETHYLENE GLYCOL POWDER 17 GM PACK PO SCH (09:35)
[2019-09-05] MEDS: CHLORHEXIDINE 0.12% ORAL RINSE 60 ML BOTTLE SWISH/SPIT SCH ×2 (09:35→21:44)
[2019-09-05] MEDS: LEVOFLOXACIN INJ 500 MG in PREMIX 1 EACH IV SCH (10:49)
[2019-09-05] MEDS: dilTIAZem Drip 125 MG/125 ML PREMIX IV SCH (18:38)
[2019-09-05] MEDS: ATORVASTATIN 20 MG TABLET PO SCH (21:44)
[2019-09-05] MEDS: ZALEPLON 5 MG CAPSULE PO SCH (21:44)
[2019-09-06] MEDS: dilTIAZem Drip 125 MG/125 ML PREMIX IV SCH ×3 (03:10→22:21)
[2019-09-06] MEDS: AMIODARONE INJ 450 MG in DEXTROSE 5% 241 ML IV SCH ×2 (03:15→16:51)
[2019-09-06] MEDS: SODIUM CHLORIDE 0.45% 1,000 ML IV SCH ×2 (03:25→13:36)
[2019-09-06] MEDS: INSULIN REGULAR 100 UNIT/ML SUBCUT SCH ×4 (04:30→22:08)
[2019-09-06 05:41] LABS: Basophils % 0.2 % (0.0-0.8); Hematocrit 30.5 VOL% (42.0-52.0); Immature Granulocytes % 3.8 %; Immature Granulocytes Absolute 0.85 #; Mean Corpuscular HGB Conc 32.8 GM/DL (32-36); Mean Corpuscular Volume 88.9 FL (87-102); Monocytes % 4.3 % (1.7-12.7); NRBC # 0.21 10*3/uL; Neutrophils % 82.7 % (38.7-73.9); Platelet Count 179 T/CUMM (130-400); Red Blood Count 3.43 MC/CUMM (3.8-5.5); Red Cell Distribution Width 14.6 % (9.3-17.3); White Blood Count 22.4 T/CUMM (4-12)
[2019-09-06 05:53] LABS: Osmolality,Calculated 276.8 MOS/KG (273-304)
[2019-09-06 06:03] LABS: Band Neutrophils 2 % (0-10); Hypochromasia 1+; Lymphocytes 10 % (20-55); Microcytosis Slight; Nucleated Red Blood Cells 1 (0-5); Segmented Neutrophils 81 % (50-85); Total Cells Counted 100
[2019-09-06 06:04] LABS: Platelet Estimate Adequate; Polychromasia Slight
[2019-09-06] MEDS: POLYETHYLENE GLYCOL POWDER 17 GM PACK PO SCH (10:00)
[2019-09-06] MEDS: CHLORHEXIDINE 0.12% ORAL RINSE 60 ML BOTTLE SWISH/SPIT SCH ×2 (10:00→21:50)
[2019-09-06] MEDS: INSULIN GLARGINE 100 UNIT/ML SUBCUT SCH (10:00)
[2019-09-06] MEDS: DOCUSATE SODIUM 100 MG CAPSULE PO SCH (10:00)
[2019-09-06] MEDS: METOPROLOL TARTRATE 25 MG TABLET PO SCH (10:00)
[2019-09-06] MEDS: DILTIAZEM CD 120 MG CAPSULE PO SCH (12:10)
[2019-09-06] MEDS: LEVOFLOXACIN INJ 500 MG in PREMIX 1 EACH IV SCH (12:10)
[2019-09-06] MEDS: ATORVASTATIN 20 MG TABLET PO SCH (21:50)
[2019-09-06] MEDS: ZALEPLON 5 MG CAPSULE PO SCH (21:50)
[2019-09-06] MEDS: MORPHINE 4 MG/1 ML VIAL IV PRN (22:08)
[2019-09-07 05:56] LABS: Basophils # 0.1 10*3/uL (0.0-0.2); Basophils % 0.4 % (0.0-0.8); Eosinophils # 0.2 10*3/uL (0.0-0.87); Eosinophils % 0.7 % (0.00-10.9); Hematocrit 34.2 VOL% (42.0-52.0); Hemoglobin 11.2 GM/DL (14.0-18.0); Immature Granulocytes Absolute 1.21 #; Lymphocytes # 2.7 10*3/uL (1.4-4.0); Lymphocytes % 11.3 % (21.2-54.2); Mean Corpuscular HGB Conc 32.7 GM/DL (32-36); Mean Corpuscular Volume 89.1 FL (87-102); Monocytes % 4.5 % (1.7-12.7); NRBC # 0.18 10*3/uL; Neutrophils % 78.1 % (38.7-73.9); Platelet Count 208 T/CUMM (130-400); Red Blood Count 3.84 MC/CUMM (3.8-5.5); Red Cell Distribution Width 15.3 % (9.3-17.3); White Blood Count 24.2 T/CUMM (4-12)
[2019-09-07 06:09] LABS: Calcium 7.7 MG/DL (8.5-10.1); Osmolality,Calculated 271.1 MOS/KG (273-304)
[2019-09-07] MEDS: INSULIN REGULAR 100 UNIT/ML SUBCUT SCH ×4 (06:37→21:43)
[2019-09-07] MEDS: POTASSIUM CHLORIDE RIDER 20 MEQ in PREMIX 1 EACH IV PRN (06:44)
[2019-09-07] MEDS: SODIUM CHLORIDE 0.45% 1,000 ML IV SCH (06:44)
[2019-09-07 07:37] LABS: Anisocytosis 1+; Band Neutrophils 4 % (0-10); Lymphocytes 14 % (20-55); Macrocytosis 1+; Nucleated Red Blood Cells 4 (0-5); Platelet Estimate Normal; Polychromasia Slight; Segmented Neutrophils 78 % (50-85); Smudge Cells Few; Total Cells Counted 100
[2019-09-07] MEDS ORDERED: ACETAMINOPHEN 325 MG TABLET PO PRN (08:36)
[2019-09-07] MEDS ORDERED: DEXTROSE 10% 250 ML BAG IV PRN ×2 (08:36)
[2019-09-07] MEDS ORDERED: GLUCAGON 1 MG VIAL IM PRN ×2 (08:36)
[2019-09-07] MEDS ORDERED: MAGNESIUM HYDROXIDE SUSP 30 ML UDCUP PO PRN (08:36)
[2019-09-07] MEDS ORDERED: ALUMINUM/MAGNES/SIMETH MAX STR 30 ML UDCUP PO PRN (08:36)
[2019-09-07] MEDS ORDERED: MAGNESIUM SULF RIDER 4 GM in PREMIX 1 EACH IV PRN (08:36)
[2019-09-07] MEDS ORDERED: MAGNESIUM SULF RIDER 2 GM in PREMIX 1 EACH IV PRN (08:36)
[2019-09-07] MEDS ORDERED: POTASSIUM CHLORIDE 20 MEQ TABLET PO PRN (08:36)
[2019-09-07] MEDS ORDERED: ONDANSETRON 4 MG/2 ML VIAL IV PRN (08:36)
[2019-09-07] MEDS: INSULIN GLARGINE 100 UNIT/ML SUBCUT SCH (08:40)
[2019-09-07] MEDS: FERROUS SULFATE 325 MG TABLET PO SCH (08:51)
[2019-09-07] MEDS: SODIUM CHLOR 0.45% KCL 20 MEQ 20 MEQ/1,000 ML BAG IV SCH (09:06)
[2019-09-07] MEDS: ASPIRIN EC 325 MG TABLET PO SCH (09:07)
[2019-09-07] MEDS: CHLORHEXIDINE 0.12% ORAL RINSE 60 ML BOTTLE SWISH/SPIT SCH ×2 (09:07→21:16)
[2019-09-07] MEDS: POLYETHYLENE GLYCOL POWDER 17 GM PACK PO SCH (09:07)
[2019-09-07] MEDS: DOCUSATE SODIUM 100 MG CAPSULE PO SCH (09:07)
[2019-09-07] MEDS: PANTOPRAZOLE 40 MG TABLET PO SCH (09:07)
[2019-09-07] MEDS: DILTIAZEM CD 120 MG CAPSULE PO SCH (09:07)
[2019-09-07] MEDS: AMIODARONE INJ 450 MG in DEXTROSE 5% 241 ML IV SCH (09:10)
[2019-09-07] MEDS: METOPROLOL TARTRATE 25 MG TABLET PO SCH ×2 (11:55→21:16)
[2019-09-07] MEDS: MULTIVITAMIN (OCUVITE) TABLET PO SCH (12:00)
[2019-09-07] MEDS: LEVOFLOXACIN INJ 500 MG in PREMIX 1 EACH IV SCH (12:00)
[2019-09-07] MEDS ORDERED: ALBUMIN 5% 25 GM in PREMIX 1 EACH IV ONE (13:47)
[2019-09-07] MEDS ORDERED: ALBUMIN 5% 12.5 GM/250 ML VIAL IV ONE (13:50)
[2019-09-07] MEDS: dilTIAZem Drip 125 MG/125 ML PREMIX IV SCH (15:01)
[2019-09-07] MEDS ORDERED: oxyCODONE/ACETAMINOPHEN 5-325 MG TABLET PO PRN ×2 (17:34→17:35)
[2019-09-07] MEDS: ZALEPLON 5 MG CAPSULE PO PRN (21:14)
[2019-09-07] MEDS: ATORVASTATIN 20 MG TABLET PO SCH (21:14)
[2019-09-08] MEDS: AMIODARONE INJ 450 MG in DEXTROSE 5% 241 ML IV SCH ×3 (01:15→18:57)
[2019-09-08] MEDS: dilTIAZem Drip 125 MG/125 ML PREMIX IV SCH (01:15)
[2019-09-08 05:26] LABS: Basophils # 0.1 10*3/uL (0.0-0.2); Basophils % 0.3 % (0.0-0.8); Eosinophils # 0.1 10*3/uL (0.0-0.87); Eosinophils % 0.6 % (0.00-10.9); Hematocrit 35.3 VOL% (42.0-52.0); Hemoglobin 11.1 GM/DL (14.0-18.0); Immature Granulocytes % 2.5 %; Immature Granulocytes Absolute 0.57 #; Lymphocytes # 1.7 10*3/uL (1.4-4.0); Lymphocytes % 7.7 % (21.2-54.2); Mean Corpuscular HGB Conc 31.4 GM/DL (32-36); Mean Corpuscular Volume 91.7 FL (87-102); Mean Platelet Volume 11.8 FL (9.6-12.0); NRBC # 0.03 10*3/uL; Neutrophils % 85.9 % (38.7-73.9); Platelet Count 142 T/CUMM (130-400); Red Blood Count 3.85 MC/CUMM (3.8-5.5); Red Cell Distribution Width 16.1 % (9.3-17.3); White Blood Count 22.5 T/CUMM (4-12)
[2019-09-08 05:54] LABS: Alanine Aminotransferase 35 U/L (16-61); Albumin 2.5 G/DL (3.4-5.0); Alkaline Phosphatase 72 U/L (45-117); Aspartate Amino Transferase 33 U/L (0-37); Bilirubin,Indirect 1.4 MG/DL (0.0-1.0); Blood Urea Nitrogen 17 MG/DL (7-18); Calcium 8.4 MG/DL (8.5-10.1); Estimated Glom Filtration Rate 117 ML/MIN; Glucose 123 MG/DL (74-106); Total Protein 5.8 G/DL (6.4-8.3)
[2019-09-08 05:55] LABS: Troponin I 0.441 NG/ML (0.00-0.045)
[2019-09-08] MEDS ORDERED: FUROSEMIDE 40 MG/4 ML VIAL IV ONE (06:00)
[2019-09-08] MEDS: INSULIN REGULAR 100 UNIT/ML SUBCUT SCH ×3 (06:05→18:09)
[2019-09-08 06:19] LABS: Anisocytosis 1+; Lymphocytes 7 % (20-55); Segmented Neutrophils 90 % (50-85); Total Cells Counted 100
[2019-09-08 06:20] LABS: Platelet Estimate Normal; Polychromasia 1+
[2019-09-08] MEDS: DILTIAZEM CD 120 MG CAPSULE PO SCH (09:42)
[2019-09-08] MEDS: FERROUS SULFATE 325 MG TABLET PO SCH (09:42)
[2019-09-08] MEDS: POLYETHYLENE GLYCOL POWDER 17 GM PACK PO SCH (09:42)
[2019-09-08] MEDS: ASPIRIN EC 325 MG TABLET PO SCH (09:42)
[2019-09-08] MEDS: METOPROLOL TARTRATE 25 MG TABLET PO SCH ×2 (09:42→21:16)
[2019-09-08] MEDS: PANTOPRAZOLE 40 MG TABLET PO SCH (09:42)
[2019-09-08] MEDS: MULTIVITAMIN (OCUVITE) TABLET PO SCH (09:42)
[2019-09-08] MEDS: DOCUSATE SODIUM 100 MG CAPSULE PO SCH (09:42)
[2019-09-08] MEDS: INSULIN GLARGINE 100 UNIT/ML SUBCUT SCH (09:46)
[2019-09-08] MEDS: ENOXAPARIN 40 MG/0.4 ML SYRINGE SUBCUT SCH (09:46)
[2019-09-08] MEDS: CHLORHEXIDINE 0.12% ORAL RINSE 60 ML BOTTLE SWISH/SPIT SCH ×2 (09:47→21:18)
[2019-09-08] MEDS: SODIUM CHLOR 0.45% KCL 20 MEQ 20 MEQ/1,000 ML BAG IV SCH (12:42)
[2019-09-08] MEDS: LEVOFLOXACIN INJ 500 MG in PREMIX 1 EACH IV SCH (12:53)
[2019-09-08] MEDS: ZALEPLON 5 MG CAPSULE PO PRN (21:16)
[2019-09-08] MEDS: ATORVASTATIN 20 MG TABLET PO SCH (21:16)
[2019-09-09] MEDS: dilTIAZem Drip 125 MG/125 ML PREMIX IV SCH (01:36)
[2019-09-09] MEDS: INSULIN REGULAR 100 UNIT/ML SUBCUT SCH ×5 (01:37→21:19)
[2019-09-09 06:35] LABS: Basophils % 0.2 % (0.0-0.8); Eosinophils # 0.2 10*3/uL (0.0-0.87); Hematocrit 31.1 VOL% (42.0-52.0); Hemoglobin 9.9 GM/DL (14.0-18.0); Immature Granulocytes % 1.8 %; Lymphocytes # 1.7 10*3/uL (1.4-4.0); Lymphocytes % 10.6 % (21.2-54.2); Mean Corpuscular HGB Conc 31.8 GM/DL (32-36); Mean Platelet Volume 10.8 FL (9.6-12.0); Monocytes % 4.9 % (1.7-12.7); Neutrophils % 81.5 % (38.7-73.9); Platelet Count 213 T/CUMM (130-400); Red Blood Count 3.38 MC/CUMM (3.8-5.5); Red Cell Distribution Width 16.2 % (9.3-17.3); White Blood Count 16.4 T/CUMM (4-12)
[2019-09-09] MEDS: AMIODARONE INJ 450 MG in DEXTROSE 5% 241 ML IV SCH (06:53)
[2019-09-09 07:04] LABS: Alanine Aminotransferase 31 U/L (16-61); Albumin 2.3 G/DL (3.4-5.0); Alkaline Phosphatase 68 U/L (45-117); Aspartate Amino Transferase 21 U/L (0-37); Bilirubin,Indirect 0.7 MG/DL (0.0-1.0); Blood Urea Nitrogen 12 MG/DL (7-18); Calcium 8.1 MG/DL (8.5-10.1); Estimated Glom Filtration Rate 118 ML/MIN; Glucose 104 MG/DL (74-106); Osmolality,Calculated 274.7 MOS/KG (273-304); Total Protein 5.5 G/DL (6.4-8.3)
[2019-09-09 07:05] LABS: Troponin I 0.251 NG/ML (0.00-0.045)
[2019-09-09] MEDS: MULTIVITAMIN (OCUVITE) TABLET PO SCH (08:43)
[2019-09-09] MEDS: FERROUS SULFATE 325 MG TABLET PO SCH (08:43)
[2019-09-09] MEDS: ASPIRIN EC 325 MG TABLET PO SCH (08:43)
[2019-09-09] MEDS: METOPROLOL TARTRATE 25 MG TABLET PO SCH (08:43)
[2019-09-09] MEDS: DILTIAZEM CD 120 MG CAPSULE PO SCH (08:43)
[2019-09-09] MEDS: DOCUSATE SODIUM 100 MG CAPSULE PO SCH (08:44)
[2019-09-09] MEDS: PANTOPRAZOLE 40 MG TABLET PO SCH (08:44)
[2019-09-09] MEDS: APIXABAN 5 MG TABLET PO SCH ×2 (08:45→21:18)
[2019-09-09] MEDS: POLYETHYLENE GLYCOL POWDER 17 GM PACK PO SCH (08:45)
[2019-09-09] MEDS: CHLORHEXIDINE 0.12% ORAL RINSE 60 ML BOTTLE SWISH/SPIT SCH ×2 (08:45→21:19)
[2019-09-09] MEDS: INSULIN GLARGINE 100 UNIT/ML SUBCUT SCH (08:54)
[2019-09-09] MEDS: ENOXAPARIN 40 MG/0.4 ML SYRINGE SUBCUT SCH (09:34)
[2019-09-09] MEDS: METOPROLOL TARTRATE 50 MG TABLET PO SCH (21:18)
[2019-09-09] MEDS: AMIODARONE 200 MG TABLET PO SCH (21:18)
[2019-09-09] MEDS: ZALEPLON 5 MG CAPSULE PO PRN (21:18)
[2019-09-09] MEDS: ATORVASTATIN 20 MG TABLET PO SCH (21:18)
[2019-09-10 05:36] LABS: Basophils % 0.1 % (0.0-0.8); Eosinophils # 0.1 10*3/uL (0.0-0.87); Eosinophils % 0.7 % (0.00-10.9); Hematocrit 29.9 VOL% (42.0-52.0); Hemoglobin 9.3 GM/DL (14.0-18.0); Immature Granulocytes % 1.2 %; Immature Granulocytes Absolute 0.21 #; Lymphocytes # 1.3 10*3/uL (1.4-4.0); Lymphocytes % 7.2 % (21.2-54.2); Mean Corpuscular HGB Conc 31.1 GM/DL (32-36); Mean Platelet Volume 10.8 FL (9.6-12.0); Neutrophils % 84.8 % (38.7-73.9); Platelet Count 256 T/CUMM (130-400); Red Blood Count 3.18 MC/CUMM (3.8-5.5); Red Cell Distribution Width 15.9 % (9.3-17.3); White Blood Count 17.3 T/CUMM (4-12)
[2019-09-10 05:42] LABS: Calcium 7.8 MG/DL (8.5-10.1); Osmolality,Calculated 271.7 MOS/KG (273-304)
[2019-09-10] MEDS: MULTIVITAMIN (OCUVITE) TABLET PO SCH (08:38)
[2019-09-10] MEDS: ASPIRIN EC 81 MG TABLET PO SCH (08:38)
[2019-09-10] MEDS: PANTOPRAZOLE 40 MG TABLET PO SCH (08:38)
[2019-09-10] MEDS: FERROUS SULFATE 325 MG TABLET PO SCH (08:38)
[2019-09-10] MEDS: INSULIN GLARGINE 100 UNIT/ML SUBCUT SCH (08:39)
[2019-09-10] MEDS: INSULIN REGULAR 100 UNIT/ML SUBCUT SCH ×4 (08:39→20:22)
[2019-09-10] MEDS: APIXABAN 5 MG TABLET PO SCH ×2 (08:39→20:21)
[2019-09-10] MEDS: AMIODARONE 200 MG TABLET PO SCH ×2 (08:39→20:21)
[2019-09-10] MEDS: DILTIAZEM CD 120 MG CAPSULE PO SCH (08:39)
[2019-09-10] MEDS: DOCUSATE SODIUM 100 MG CAPSULE PO SCH (08:39)
[2019-09-10] MEDS: METOPROLOL TARTRATE 50 MG TABLET PO SCH ×2 (08:39→20:21)
[2019-09-10] MEDS: POLYETHYLENE GLYCOL POWDER 17 GM PACK PO SCH ×2 (08:40→10:31)
[2019-09-10] MEDS: CHLORHEXIDINE 0.12% ORAL RINSE 60 ML BOTTLE SWISH/SPIT SCH ×2 (08:40→20:22)
[2019-09-10] MEDS: ATORVASTATIN 20 MG TABLET PO SCH (20:21)
[2019-09-10] MEDS: ZALEPLON 5 MG CAPSULE PO PRN (20:38)
[2019-09-11 06:46] LABS: Basophils % 0.1 % (0.0-0.8); Eosinophils # 0.2 10*3/uL (0.0-0.87); Eosinophils % 1.3 % (0.00-10.9); Hematocrit 30.3 VOL% (42.0-52.0); Hemoglobin 9.2 GM/DL (14.0-18.0); Immature Granulocytes % 1.5 %; Immature Granulocytes Absolute 0.19 #; Lymphocytes # 1.8 10*3/uL (1.4-4.0); Lymphocytes % 13.8 % (21.2-54.2); Mean Corpuscular HGB Conc 30.4 GM/DL (32-36); Mean Corpuscular Volume 95.3 FL (87-102); Mean Platelet Volume 11.1 FL (9.6-12.0); Monocytes % 7.9 % (1.7-12.7); Neutrophils % 75.4 % (38.7-73.9); Platelet Count 300 T/CUMM (130-400); Red Blood Count 3.18 MC/CUMM (3.8-5.5); Red Cell Distribution Width 15.9 % (9.3-17.3); White Blood Count 12.7 T/CUMM (4-12)
[2019-09-11 06:58] LABS: Hypochromasia 1+; Ovalocytes Slight; Platelet Estimate Adequate
[2019-09-11 07:08] LABS: Alanine Aminotransferase 36 U/L (16-61); Albumin 2.3 G/DL (3.4-5.0); Alkaline Phosphatase 80 U/L (45-117); Aspartate Amino Transferase 23 U/L (0-37); Bilirubin,Indirect 0.6 MG/DL (0.0-1.0); Blood Urea Nitrogen 14 MG/DL (7-18); Calcium 7.6 MG/DL (8.5-10.1); Estimated Glom Filtration Rate 122 ML/MIN; Glucose 106 MG/DL (74-106); Osmolality,Calculated 273.8 MOS/KG (273-304); Total Protein 5.4 G/DL (6.4-8.3)
[2019-09-11] MEDS: INSULIN REGULAR 100 UNIT/ML SUBCUT SCH ×4 (08:02→21:34)
[2019-09-11] MEDS: CHLORHEXIDINE 0.12% ORAL RINSE 60 ML BOTTLE SWISH/SPIT SCH ×2 (08:25→21:34)
[2019-09-11] MEDS: MULTIVITAMIN (OCUVITE) TABLET PO SCH (08:25)
[2019-09-11] MEDS: METOPROLOL TARTRATE 50 MG TABLET PO SCH ×2 (08:25→21:31)
[2019-09-11] MEDS: APIXABAN 5 MG TABLET PO SCH ×2 (08:26→21:30)
[2019-09-11] MEDS: ASPIRIN EC 81 MG TABLET PO SCH (08:26)
[2019-09-11] MEDS: DOCUSATE SODIUM 100 MG CAPSULE PO SCH (08:26)
[2019-09-11] MEDS: INSULIN GLARGINE 100 UNIT/ML SUBCUT SCH (08:26)
[2019-09-11] MEDS: PANTOPRAZOLE 40 MG TABLET PO SCH (08:26)
[2019-09-11] MEDS: FERROUS SULFATE 325 MG TABLET PO SCH (08:26)
[2019-09-11] MEDS: DILTIAZEM CD 120 MG CAPSULE PO SCH (08:26)
[2019-09-11] MEDS: AMIODARONE 200 MG TABLET PO SCH ×2 (08:26→21:30)
[2019-09-11] MEDS: POLYETHYLENE GLYCOL POWDER 17 GM PACK PO SCH (08:27)
[2019-09-11] MEDS: ATORVASTATIN 20 MG TABLET PO SCH (21:30)
[2019-09-11] MEDS: ZALEPLON 5 MG CAPSULE PO PRN (21:30)
[2019-09-12 02:47] LABS: Basophils % 0.1 % (0.0-0.8); Eosinophils # 0.1 10*3/uL (0.0-0.87); Eosinophils % 0.8 % (0.00-10.9); Hematocrit 32.9 VOL% (42.0-52.0); Hemoglobin 10.3 GM/DL (14.0-18.0); Immature Granulocytes % 1.2 %; Immature Granulocytes Absolute 0.16 #; Lymphocytes # 1.6 10*3/uL (1.4-4.0); Lymphocytes % 12.6 % (21.2-54.2); Mean Corpuscular HGB Conc 31.3 GM/DL (32-36); Mean Corpuscular Volume 92.7 FL (87-102); Mean Platelet Volume 10.4 FL (9.6-12.0); Monocytes % 7.7 % (1.7-12.7); Neutrophils % 77.6 % (38.7-73.9); Platelet Count 327 T/CUMM (130-400); Red Blood Count 3.55 MC/CUMM (3.8-5.5); Red Cell Distribution Width 15.8 % (9.3-17.3); White Blood Count 12.9 T/CUMM (4-12)
[2019-09-12 03:10] LABS: Alanine Aminotransferase 42 U/L (16-61); Albumin 2.4 G/DL (3.4-5.0); Alkaline Phosphatase 91 U/L (45-117); Aspartate Amino Transferase 26 U/L (0-37); Bilirubin,Indirect 0.6 MG/DL (0.0-1.0); Blood Urea Nitrogen 13 MG/DL (7-18); Calcium 8.3 MG/DL (8.5-10.1); Estimated Glom Filtration Rate 109 ML/MIN; Glucose 82 MG/DL (74-106); Osmolality,Calculated 273.7 MOS/KG (273-304); Total Protein 5.9 G/DL (6.4-8.3)
[2019-09-12] MEDS: INSULIN REGULAR 100 UNIT/ML SUBCUT SCH (07:52)
[2019-09-12 08:12] VITALS: BP 98/60
[2019-09-12] MEDS: INSULIN GLARGINE 100 UNIT/ML SUBCUT SCH (08:29)
[2019-09-12] MEDS: POLYETHYLENE GLYCOL POWDER 17 GM PACK PO SCH (08:29)
[2019-09-12] MEDS: FERROUS SULFATE 325 MG TABLET PO SCH (08:30)
[2019-09-12] MEDS: DOCUSATE SODIUM 100 MG CAPSULE PO SCH (08:30)
[2019-09-12] MEDS: PANTOPRAZOLE 40 MG TABLET PO SCH (08:30)
[2019-09-12] MEDS: ASPIRIN EC 81 MG TABLET PO SCH (08:30)
[2019-09-12] MEDS: MULTIVITAMIN (OCUVITE) TABLET PO SCH (08:30)
[2019-09-12] MEDS: AMIODARONE 200 MG TABLET PO SCH (08:30)
[2019-09-12] MEDS: DILTIAZEM CD 120 MG CAPSULE PO SCH (08:30)
[2019-09-12] MEDS: APIXABAN 5 MG TABLET PO SCH (08:31)
[2019-09-12] MEDS: CHLORHEXIDINE 0.12% ORAL RINSE 60 ML BOTTLE SWISH/SPIT SCH (08:31)
[2019-09-12] MEDS: METOPROLOL TARTRATE 50 MG TABLET PO SCH (08:31)
== END 2019-09-12 11:59 | disposition home health service (06) | DRG 236 ==
LOC: N.EDINP 08:59 → SUPCPDRO 09:05 → N.CVR 08-28 12:33 → N.ICU 08-29 07:01 → N.TELES 09-07 15:15
PROC: [UNRECOGNIZED PROCEDURE] (2019-08-28 08:00)